=== PATIENT | female | born 1985 ===

== ENCOUNTER 2017-02-09 14:43 | Outpatient (CLI) | payer SELFPAY | END 2017-02-09 14:44 | disposition EMS.NT | LOC: EMS 14:43 | PROVIDERS: ATTEND Surgery | DX: Z04.1 Encounter for examination and observation following transport accident (principal); V49.49XA Driver injured in collision with other motor vehicles in traffic accident, initial encounter; Y92.414 Local residential or business street as the place of occurrence of the external cause ==